=== PATIENT | female | born 1980 | race Hispanic/Latino ===

== ENCOUNTER 2019-03-12 09:11 | Observation (INO) | payer OTHER, SELFPAY ==
[2019-03-12 09:51] LABS: %Lymphocytes 24.8 % (21.0-51.0); %Monocytes 5.3 % (0.0-10.0); %Neutrophils 68.2 % (42.0-75.0); Hemoglobin 10.9 g/dL (12.0-16.0); Mean Corpuscular HGB CONC 31.7 g/dL (32.0-36.0); Mean Corpuscular Hemoglobin 23.3 pg (27.0-31.0); Mean Corpuscular Volume 73.4 fL (78.0-98.0); Mean Platelet Volume 7.5 fL (7.4-10.4); Platelet Count 341 thou/uL (130-400); RBC Distribution Width 15.3 % (11.5-14.5); Red Blood Cell (RBC) Count 4.69 mill/uL (4.20-5.40); White Blood Cell (WBC) Count 10.3 thou/uL (4.8-10.8)
[2019-03-12 09:52] LABS: #Basophils 0.1 thou/uL (0.0-0.2); #Eosinphils 0.1 thou/uL (0.0-0.7); #Lymphocytes 2.6 thou/uL (1.20-3.40); #Monocytes 0.6 thou/uL (0.11-0.59); %Basophils 0.7 % (0.0-1.0); %Eosinophils 1.1 % (0.0-10.0)
[2019-03-12 10:04] LABS: ALT (SGPT) 15 U/L (8-55); AST (SGOT) 11 U/L (5-34); Albumin 4.1 g/dL (3.5-5.0); Alkaline Phosphatase 87 U/L (40-110); Anion Gap 11 mmol/L (10-20); BUN (Urea Nitrogen) 11 mg/dL (7.0-18.7); Bilirubin, Total 0.2 mg/dL (0.2-1.2); CK (CPK) 35 U/L (29-168); Calc. Creatinine Clearance 0 mL/min (70-130); Calcium 9.1 mg/dL (7.8-10.44); Carbon Dioxide 24 mmol/L (22-29); Chloride 106 mmol/L (98-107); Estimated GFR-MDRD 82; Globulin 3.4 g/dL (2.4-3.5); Glucose 119 mg/dL (70-105); Potassium 4.1 mmol/L (3.5-5.1); Protein, Total 7.5 g/dL (6.0-8.3); Sodium 137 mmol/L (136-145)
[2019-03-12 10:18] LABS: MDiff Complete? YES; Microcytosis SLIGHT = 6-15 cells (100X) (0-5/hpf); Platelet Morphology Comment Appears Adequate
[2019-03-12] MEDS ORDERED: Nitroglycerin 0.4 MG TAB 1 EACH ONE (13:03)
[2019-03-12] MEDS ORDERED: Aspirin Chewable 81 MG TAB ONE (13:03)
--- NOTE | 2019-03-12 13:11 | CT ---
CT ANGIO OF CHEST PERFORMED WITH INTRAVENOUS CONTRAST ENHANCEMENT WITH 3D RECONSTRUCTIONS: HISTORY: Syncopal episodes. FINDINGS: Right hemidiaphragm is slightly elevated. The lungs are clear of any infiltrative process. There is no significant mediastinal or hilar adenopathy. The thoracic aorta is normal in caliber. There is fairly good pulmonary artery opacification obtained, there is no CT evidence for pulmonary e mbolus. Visualized liver parenchyma shows no focal findings. The liver appears upper limits of normal in siz e. Gallbladder has been removed. IMPRESSION: No CT evidence for a pulmonary embolus. POS: [facility]
[2019-03-12] MEDS ORDERED: HYDROcodone/Acetaminophen 5/325 mg Tablet PO PRN (14:31)
[2019-03-12] MEDS ORDERED: Senokot S 8.6-50 MG TAB PO PRN (14:31)
[2019-03-12 14:46] LABS: BHCG - Serum Negative (NEGATIVE); Pregs Control Background? CLEAR/WHITE (CLR/WHITE); Pregs Control Bar Appear? YES (CONTROL BAR)
[2019-03-12] MEDS ORDERED: Dextrose 50% Abboject 50 ML SYRINGE SLOW IVP PRN (14:55)
[2019-03-12] MEDS ORDERED: Dextrose 5% in Water 1,000 ML IV PRN (14:55)
[2019-03-12] MEDS ORDERED: HumaLOG 300 UNITS/3 ML VIAL SC PRN (14:55)
[2019-03-12 15:21] VITALS: BMI 41.8
[2019-03-12] MEDS: Ondansetron PF 4 MG/2 ML Vial IVP PRN (15:54)
--- NOTE | 2019-03-12 16:17 | HP ---
HISTORY OF PRESENT ILLNESS: A 39-year-old woman referred to the Hospitalist Service for possible acute coronary syndrome by the emergency department. The patient has a several week history of getting lightheaded, short of breath with walking. Today, she had sharp chest pain with it, unknown duration and some mild nausea. PAST MEDICAL HISTORY: Pertinent for questionable case of diabetes mellitus type 2. FAMILY HISTORY: Positive for coronary artery disease. REVIEW OF SYSTEMS: GENERAL: Some headaches, dizziness with present illness. No pressure chest pain, orthopnea, or paroxysmal nocturnal dyspnea. RESPIRATION: Does have dyspnea on exertion without wheezes or asthma. GASTROINTESTINAL: Nausea with present illness. No vomiting, abdominal pain, or diarrhea. MUSCULOSKELETAL: No swelling in her legs. PHYSICAL EXAMINATION: GENERAL: She is alert woman, in no distress. VITAL SIGNS: Blood pressure 114/73, pulse 80, respirations 16, and room air sat 99%. NECK: No neck vein distention. CHEST: Clear to auscultation and percussion. HEART: Regular rate and rhythm without murmurs or gallops. ABDOMEN: Soft. Bowel sounds are normal. No bruits or hepatosplenomegaly. EXTREMITIES: Reveal no cyanosis, clubbing, or edema. IMAGING DATA: A chest x-ray was not done, but a CTA was done which revealed no evidence of pulmonary emboli. EKG reveals a regular sinus rhythm with questionable inferior infarct, unknown age, no ST-T abnormality. Common metabolic profile is normal except for a blood sugar of 119. Initial troponin 0.015. CBC shows a mild anemia with microcytic microchromic indices, hemoglobin 10.3, and platelet count 341,000. ADMITTING DIAGNOSES: 1. Atypical chest pain. 2. Questionable history of diabetes. 3. Dyspnea on exertion. 4. Dizziness. 5. Microcytic microchromic anemia. PLAN: Agree with Rosaura Weaver's schedule stress test after serial enzymes. We would suggest also hemoglobin A1c and iron binding capacity. Job ID: [id number]
[2019-03-12 16:38] LABS: Iron 16 ug/dL (50-170); Iron Binding Capacity, Total 381 mcg/dL (265-497)
[2019-03-12 16:44] LABS: Troponin I Less than 0.010 ng/mL (< 0.028)
[2019-03-12 17:08] LABS: Bacteria/HPF None Seen HPF (None Seen); Bilirubin Negative (Negative); Blood, Urine 2+ (Negative); Clarity Clear (Clear); Glucose, Urine (Dipstick) Normal (Negative); Leukocyte 25 Leu/uL (Negative); Nitrite Negative (Negative); Protein, Urine (Dipstick) Negative (Neg-Trace); Squamous Epithelial 0-3 HPF (0-3); Urobilinogen Normal mg/dL (Less than 2)
[2019-03-12] MEDS ORDERED: ISOVUE-370 76%-LOCM 1 ML ONE (18:14)
[2019-03-12] MEDS: Acetaminophen 325 MG TAB PO PRN (18:18)
[2019-03-12 20:13] LABS: Troponin I 0.013 ng/mL (< 0.028)
[2019-03-12] MEDS: Famotidine 20 MG TAB PO SCH (20:15)
--- NOTE | 2019-03-12 21:13 | HP ---
PRIMARY CARE PHYSICIAN: Dr. Ding at [facility]. CHIEF COMPLAINT/HISTORY OF PRESENT ILLNESS: Left upper back pain with dizziness, near syncope, shortness of breath. Reports that it has been ongoing for the last 2 weeks, but worse today. Reports today she felt very dizzy. Reports that she feels like she cannot take a good deep breath. Denies the pain radiates anywhere. Denies any diaphoresis. Reports that she generally feels weak. Reports that she has bilateral upper arm weakness. Reports that she has a significant cardiac history on her mother's side and reports that this is concerning to her and so she sought care in the emergency room. The patient does report that she was on metformin for diabetes, but recently was taken off the medication per her PCP because it was more under control. She reports that she saw Dr. Ding a week ago and was referred to Cardiology in [place], but the appointment is not until March 25. When symptoms became worse, she decided to come into the emergency room. First troponin in the emergency room was negative. EKG per the ER, normal sinus rhythm, beats per minute 79. She has new Q waves when compared to the EKG on 08/29/2015. CTA was performed, which was negative for PE, but based on the patient's symptoms and family history, the patient will be admitted to the observation unit for further risk stratification. PAST MEDICAL HISTORY: Diabetes. Reports that she had some sort of cardiac issue when she was an . PAST SURGICAL HISTORY: section, cholecystectomy in 2008, has had a tubal ligation. PSYCHIATRIC HISTORY: Depression, anxiety. SOCIAL HISTORY: Denies any smoking history. Denies any alcohol or drug use. Lives at home with her family. FAMILY HISTORY: Coronary artery disease in paternal grandmother and grandfather. Also family history of diabetes and cancer on her father's side. REVIEW OF SYSTEMS: The patient denies any chills or fever. Does report the pain is in her back, upper back on the left side and does not radiate. Denies any palpitations. Denies cough. Does report some shortness of breath. Denies any abdominal pain, nausea, vomiting, or constipation. Denies any edema. Denies any chest pain per se, but reports that it is in her back. Denies any CVA pain. Denies any dysuria. All other systems are reviewed and are negative unless mentioned in the HPI. PHYSICAL EXAMINATION: CONSTITUTIONAL: The patient appears anxious, but she is nontoxic. She is alert and oriented to person, place, and time, is in no apparent distress. HEENT: Head is atraumatic and normocephalic. Eyes; eyelids are normal to inspection. Pupils are equally round and reactive to light. ENT; mouth exam is normal. Mucous membranes are moist. NECK: Normal range of motion. Trachea is midline. RESPIRATORY: Breath sounds are clear. Chest movement is symmetrical. CARDIOVASCULAR: Regular rate and rhythm. Heart sounds are normal. ABDOMEN: Nontender. Bowel sounds are heard. BACK: She has some mild paraspinal tenderness in upper lumbar spine. No CVA tenderness. EXTREMITIES: Upper extremity; normal inspection. Normal range of motion. Radial pulses equal bilaterally. Lower extremity; normal inspection. Normal range of motion. No edema. NEUROLOGIC: The patient is oriented to person, place, and time. Speech is normal. SKIN: Warm, dry, normal in color. PSYCHIATRIC: She is anxious, but is oriented to person, place, and time. LABORATORY DATA: Serum hCG is negative. Hemoglobin 10.9, hematocrit 34.4. CK is 35. Sodium 137, potassium 4.1, chloride 106, carbon dioxide 24, gap is 11, BUN is 11, creatinine is 0.78, estimated GFR is 82, glucose 119, calcium is 9.1, AST 11, ALT is 15. First troponin is undetectable. PLAN/ASSESSMENT: 1. Kind of atypical chest pain with new Q waves on the EKG. First troponin is negative. Significant family history. The patient will be admitted to the observation unit. We will trend troponins and order a stress test. 2. History of diabetes. We will order Accu-Cheks. A1c will be checked in the morning. 3. Deep venous thrombosis and gastrointestinal prophylaxis have been started. 4. Case was discussed with Dr. Longoria, who agrees with plan. 5. Hospital course is dependent on clinical findings. Job ID: [id number]
[2019-03-12] MEDS: HYDROcodone/Acetaminophen 5/325 mg Tablet PO PRN (21:54)
[2019-03-13] MEDS: Ondansetron PF 4 MG/2 ML Vial IVP PRN (04:17)
[2019-03-13 05:00] LABS: #Basophils 0.1 thou/uL (0.0-0.2); #Eosinphils 0.2 thou/uL (0.0-0.7); #Lymphocytes 3.1 thou/uL (1.20-3.40); #Monocytes 0.6 thou/uL (0.11-0.59); #Neutrophils 5.3 thou/uL (1.40-6.50); %Basophils 0.7 % (0.0-1.0); %Eosinophils 1.9 % (0.0-10.0); %Lymphocytes 33.4 % (21.0-51.0); %Monocytes 6.6 % (0.0-10.0); %Neutrophils 57.4 % (42.0-75.0); Hemoglobin 10.6 g/dL (12.0-16.0); Mean Corpuscular HGB CONC 31.9 g/dL (32.0-36.0); Mean Corpuscular Hemoglobin 23.8 pg (27.0-31.0); Mean Corpuscular Volume 74.5 fL (78.0-98.0); Mean Platelet Volume 7.6 fL (7.4-10.4); Platelet Count 329 thou/uL (130-400); RBC Distribution Width 15.2 % (11.5-14.5); Red Blood Cell (RBC) Count 4.48 mill/uL (4.20-5.40); White Blood Cell (WBC) Count 9.2 thou/uL (4.8-10.8)
[2019-03-13 05:05] LABS: Hemoglobin A1c 5.6 % (4.0-6.0)
[2019-03-13 05:28] LABS: ALT (SGPT) 14 U/L (8-55); AST (SGOT) 12 U/L (5-34); Albumin 3.8 g/dL (3.5-5.0); Alkaline Phosphatase 79 U/L (40-110); Anion Gap 13 mmol/L (10-20); BUN (Urea Nitrogen) 13 mg/dL (7.0-18.7); Bilirubin, Total 0.4 mg/dL (0.2-1.2); Calc. Creatinine Clearance 173 mL/min (70-130); Calcium 8.9 mg/dL (7.8-10.44); Carbon Dioxide 22 mmol/L (22-29); Cardiac Risk 4.7 (Less than 4.5); Chloride 107 mmol/L (98-107); Cholesterol 135 mg/dl (< 200 Desired); Estimated GFR-MDRD 79; Globulin 3.4 g/dL (2.4-3.5); Glucose 111 mg/dL (70-105); HDL Cholesterol 29 mg/dL (>60 Neg Risk); LDL Cholesterol, Calculated 76 mg/dL; Potassium 3.7 mmol/L (3.5-5.1); Protein, Total 7.2 g/dL (6.0-8.3); Sodium 138 mmol/L (136-145); Triglycerides 150 mg/dL (Less than 150)
[2019-03-13] MEDS: Famotidine 20 MG TAB PO SCH ×2 (11:32→20:23)
[2019-03-13] MEDS: Enoxaparin Sodium 40 MG/0.4 ML SYRINGE SC SCH (11:35)
[2019-03-13] MEDS: Acetaminophen 325 MG TAB PO PRN (12:34)
[2019-03-13] MEDS: HYDROcodone/Acetaminophen 5/325 mg Tablet PO PRN (17:12)
--- NOTE | 2019-03-13 18:11 | PDOC.HOSPP ---
- Subjective Subjective: Doing ok. Worried because she has a family history heart problems. Mostly her grandparents. Her GM had similar symptoms with pain in the upper back. She does not have a GB. Symptoms are exertional only. - Objective Vital Signs & Weight: Vital Signs (12 hours) Temp Pulse Resp BP BP Pulse Ox 03/13/19 15:40 98.2 F 79 16 119/72 98 03/13/19 11:29 91 16 124/89 98 03/13/19 07:50 98 F 70 14 131/78 98 Weight Weight 258 lb 3.2 oz I&O: 03/12/19 03/13/19 03/14/19 06:59 06:59 06:59 Intake Total 782 Output Total 400 Balance 382 Result Diagrams: 03/13/19 04:26 03/13/19 04:26 Additional Labs: Accuchecks 03/13/19 03/13/19 03/12/19 17:02 11:37 20:11 POC Glucose 95 156 H 113 H Hospitalist ROS - Medication Medications: Active Medications Generic Name Dose Route Start Last Admin Trade Name Freq PRN Reason Stop Dose Admin Acetaminophen 650 mg 03/12/19 14:31 03/13/19 12:34 Tylenol PO 650 mg Q4H PRN Administration Headache/Fever/Mild Pain (1-3) Hydrocodone Bitart/Acetaminophen 1 tab 03/12/19 14:31 03/13/19 17:12 [place] 5/325 PO 1 tab Q4H PRN Administration Moderate Pain (4-6) Enoxaparin Sodium 40 mg 03/13/19 09:00 03/13/19 11:35 Lovenox SC Not Given 09 MEJIA Famotidine 20 mg 03/12/19 21:00 03/13/19 11:32 Pepcid PO 20 mg BID MEJIA Administration Ondansetron HCl 4 mg 03/12/19 15:42 03/13/19 04:17 Zofran IVP 4 mg Q6H PRN Administration Nausea/Vomiting Sodium Chloride 10 ml 03/12/19 14:31 03/13/19 04:17 Flush - Normal Saline IVF 10 ml PRN PRN Administration Saline Flush - Exam General Appearance: NAD, awake alert General - other findings: Morbidly obese Heart: RRR, no murmur, no gallops, no rubs, normal peripheral pulses Respiratory: CTAB, no wheezes, no rales, no ronchi, normal chest expansion, no tachypnea, normal percussion Gastrointestinal: soft, non-distended, normal bowel sounds, no palpable masses, no hepatomegaly, no splenomegaly, no bruit, no guarding Gastrointestinal - other findings: Very mild TTP RUQ Neurological: cranial nerve grossly intact, no focal deficits Musculoskeletal: normal tone, normal strength, no muscle wasting Psychiatric: normal affect, normal behavior, A&O x 3 Hosp A/P (1) Chest pain Code(s): R07.9 - CHEST PAIN, UNSPECIFIED Status: Acute (2) Back pain Code(s): M54.9 - DORSALGIA, UNSPECIFIED Status: Acute (3) Hypothyroidism Code(s): E03.9 - HYPOTHYROIDISM, UNSPECIFIED Status: Acute (4) Microcytic anemia Code(s): D50.9 - IRON DEFICIENCY ANEMIA, UNSPECIFIED Status: Acute - Plan Stress test could not be completed today. Will have to be finished tomorrow. A1c is normal. Blood sugars are normal. Will DC accuchecks. May need to be on a little thyroid supplementation, but I would recommend a recheck with her PCP on follow up before initiating. Anemia appropriate to a premenopausal female. Will check iron studies.
[2019-03-14] MEDS: HYDROcodone/Acetaminophen 5/325 mg Tablet PO PRN (03:14)
[2019-03-14 06:16] LABS: Iron 14 ug/dL (50-170); Iron Binding Capacity, Total 355 mcg/dL (265-497)
[2019-03-14 06:28] LABS: Ferritin 4.95 ng/mL (10-291); Free T4 (Free Thyroxine) 0.78 ng/dL (0.70-1.48)
[2019-03-14 08:01] VITALS: BP 106/67; TEMP 98.2
--- NOTE | 2019-03-14 09:41 | NM ---
Radionucleotide stress and rest myocardial perfusion scan with CT attenuation correction and SPECT im aging Left ventricular wall motion evaluation and ejection fraction HISTORY: Chest pain. FINDINGS: Adenosine protocol. There is heterogeneous uptake of radiotracer throughout the left ventri cular myocardium. No focal perfusion defect or reversibility. Some breast attenuation apparent. QGS analysis of gated SPECT images shows no focal wall motion abnormalities. Ejection fraction calcul ated at 64%. IMPRESSION: Normal myocardial perfusion scan. Normal LVEF.
[2019-03-14] MEDS: Famotidine 20 MG TAB PO SCH (10:24)
[2019-03-14] MEDS: Enoxaparin Sodium 40 MG/0.4 ML SYRINGE SC SCH (10:25)
--- NOTE | 2019-03-14 14:49 | DIS ---
DATE OF ADMISSION: 03/12/2019 DATE OF DISCHARGE: 03/14/2019 DISCHARGE DIAGNOSES: 1. Chest pain/back pain, noncardiac. 2. Iron-deficiency anemia. CONSULTATIONS: None. PERTINENT LABORATORY AND X-RAY FINDINGS: Hemoglobin A1c 5.6. Serum iron level 14, TIBC 355, ferritin 4.95. TSH 5.91, free T4 of 0.78. CBC showed a hemoglobin ranging between 10.6 to 10.9, MCV 75. CT angiogram of the chest dated 03/12/2019, showed no evidence for pulmonary embolus. Cardiolite stress test dated 03/13/2019, showed no evidence for reversible or fixed ischemia with calculated ejection fraction of 64%. HOSPITAL COURSE: The patient was observed on the telemetry unit after initially presenting with chest and back pain with associated dizziness and shortness of breath. The patient underwent cardiac evaluation including Cardiolite stress testing showing no evidence of reversible or fixed ischemia with calculated ejection fraction of 64%. Cardiac biomarkers were negative x3 and telemetry monitoring showed no evidence of acute arrhythmia or dysrhythmia. Screening metabolic survey did show evidence of microcytic anemia with serum iron levels noted at 14. The patient will initiate therapy with ferrous sulfate 325 mg b.i.d. with serial iron monitoring on an outpatient basis. Overall, the patient remained clinically stable during the hospital course, tolerating regular oral intake. I have examined the patient at the time of discharge and discussed followup instructions. The patient verbalized understanding and in agreement and ready for discharge on 03/14/2019. DISCHARGE MEDICATIONS: Ferrous sulfate 325 mg p.o. b.i.d. FOLLOWUP: The patient will follow up with her primary care provider, Dr. Amaury Ding, within 7 days of discharge. CONDITION ON DISCHARGE: Stable. ACTIVITY: Ad-venkat. DIET: Regular. CODE STATUS: Full. DISPOSITION: Home on 03/14/2019. Job ID: [id number]
== END 2019-03-14 11:12 | disposition home or self-care (01) ==
LOC: ERS 09:11 → 2SW 13:33
PROVIDERS: ADMIT Internal Medicine; ATTEND Internal Medicine
DX: R07.89 Other chest pain (principal); M54.9 Dorsalgia, unspecified; D50.9 Iron deficiency anemia, unspecified; R06.02 Shortness of breath; R42 Dizziness and giddiness; E11.9 Type 2 diabetes mellitus without complications; Z88.0 Allergy status to penicillin
CPT/HCPCS: 36415; 36416; 71275; 78452; 80053; 80061; 81001; 82550; 82728; 83036; 83540; 83550; 84439; 84443; 84484; 84703; 85025; 93005; 93017; 96374; 96376; A9500; G0378; J0153; J1650; J2405; Q9966

== ENCOUNTER 2019-04-19 09:07 | Emergency (ER) | payer SELFPAY | END 2019-04-19 10:18 | disposition home or self-care (01) | LOC: ERS 09:07 | DX: K13.0 Diseases of lips (principal); E11.9 Type 2 diabetes mellitus without complications; F32.9 Major depressive disorder, single episode, unspecified; F41.9 Anxiety disorder, unspecified; Z79.899 Other long term (current) drug therapy | CPT/HCPCS: 99283 ==